=== PATIENT | male | born 1955 | race Caucasian/White ===

== ENCOUNTER 2020-12-30 02:36 | Emergency (ER) | payer MEDICAID ==
[~2020-12-30] VITALS: Ht 185.4 cm; Wt 63.5 kg
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
--- NOTE | 2020-12-30 03:09 | NUR ---
BLOOD COLLECTED AND SENT TO LAB
--- NOTE | 2020-12-30 03:14 | NUR ---
NAYLAID SWABBED, SENT TO LAB.
[2020-12-30 03:22] LABS: BASOPHILS # (AUTO) 0.1 /CMM (0.0-0.2); BASOPHILS % (AUTO) 1.2 % (0.0-2.0); EOSINOPHILS % (AUTO) 1.2 % (0.0-6.0); HEMATOCRIT 39 % (39-51); HEMOGLOBIN 12.7 g/dL (13.5-17.5); LYMPHOCYTES # (AUTO) 0.9 /CMM (0.8-4.8); LYMPHOCYTES % (AUTO) 11.7 % (20.0-44.0); MEAN CORPUSCULAR HGB CONC 33 g/dl (31.0-36.0); MEAN CORPUSCULAR VOLUME 93 fL (80-96); MONOCYTES # (AUTO) 0.4 /CMM (0.1-1.30); MONOCYTES % (AUTO) 5.1 % (2.0-12.0); NEUTROPHILS # (AUTO) 6.4 /CMM (1.8-8.9); NEUTROPHILS % (AUTO) 80.8 % (43.0-81.0); PLATELET COUNT (AUTO) 238 /CMM (150-450); WHITE BLOOD COUNT (AUTO) 7.9 K/uL (4.3-11.0)
[2020-12-30 03:27] LABS: CALCIUM, SERUM 9.3 mg/dL (8.5-10.1); CARBON DIOXIDE 24 mmol/L (21-32); CHLORIDE 101 mmol/L (98-107); CREATININE 0.8 mg/dL (0.6-1.3); GLUCOSE 111 mg/dL (74-106); POTASSIUM 4.2 mmol/L (3.5-5.1); SODIUM SERUM 136 mmol/L (136-145); UREA NITROGEN, BLOOD 17 mg/dL (7-18)
[2020-12-30 03:34] LABS: ACETAMINOPHEN 1 ug/ml (10-30); ALANINE AMINOTRANSFERASE 26 U/L (12-78); ALBUMIN 3.6 g/dL (3.4-5.0); ALKALINE PHOSPHATASE 152 U/L (46-116); ASPARTATE AMINOTRANSFERASE 18 U/L (15-37); BILIRUBIN,DIRECT 0.1 mg/dL (0.0-0.2); BILIRUBIN,TOTAL 0.3 mg/dL (0.2-1.0); TOTAL PROTEIN, SERUM 7.4 g/dL (6.4-8.2)
[2020-12-30 03:36] LABS: ALCOHOL, BLOOD < 3 mg/dL (0-0)
--- NOTE | 2020-12-30 04:10 | NUR ---
REC'D NEG COVID RESULTS. AWARE
--- NOTE | 2020-12-30 04:30 | NUR ---
URINE COLLECTED AND SENT TO LAB
[2020-12-30 05:01] LABS: BILIRUBIN,URINE NEGATIVE (NEGATIVE); COLOR,URINE YELLOW (YELLOW); LEUKOCYTE ESTERASE ,URINE NEGATIVE (NEGATIVE); NITRITE, URINE NEGATIVE (NEGATIVE); PROTEIN,URINE NEGATIVE (NEGATIVE); UGLUCOSE NEGATIVE (NEGATIVE); UROBILINOGEN,URINE 0.2 EU/dL (0.2)
--- NOTE | 2020-12-30 05:50 | NUR ---
ART, PROFESSOR SCULPTURE AT BEDSIDE FOR EVALUATION
[2020-12-30] MEDS ORDERED: OLANZAPINE 5 MG TABLET PO ONE (06:00)
[2020-12-30] MEDS ORDERED: OLANZAPINE 5 MG TABLET ONE (06:01)
--- NOTE | 2020-12-30 06:25 | NUR ---
CALLED [facility] FOR TRANSPORTATION. REFERENCE #[id number], WILL CALL BACK WITH ETA
--- NOTE | 2020-12-30 06:45 | NUR ---
[facility] B[facility] [address] [facility]
--- NOTE | 2020-12-30 09:56 | NUR ---
SPOKE WITH CHEN, ALL SOURCE INTELLIGENCE ANALYST AT THE [facility] TO NITOFY THAT PT IS CLEARED PSYCHIATRICALLY AND RETURNING TO FACILITY.
--- NOTE | 2020-12-30 10:20 | NUR ---
PT NOTED WITH AN IV LINE WHICH WAS STARTED AT THE FACILITY ON THE RFA 24G. IV LINE WAS DC D/T IV IS NOT WORKING.
--- NOTE | 2020-12-30 10:21 | NUR ---
[facility]Y #[phone] AT BEDSIDE FOR PT TRANSPORT BACK TO HIS FACILITY. PT IS PSYCHIATRICALLY CLEARED. FACILITY AWARE OF PT RETURN. REPORT GIVEN TO YOSEF CH. PT IS IN STABLE CONDITION FOR TRANSPORT
[2020-12-30 10:28] VITALS: BP 124/83
== END 2020-12-30 10:28 ==
LOC: ER 02:56
DX: F91.8 Other conduct disorders (principal); Z86.16 Personal history of COVID-19; C18.9 Malignant neoplasm of colon, unspecified; F20.9 Schizophrenia, unspecified; F32.9 Major depressive disorder, single episode, unspecified; K21.9 Gastro-esophageal reflux disease without esophagitis; Z88.8 Allergy status to other drugs, medicaments and biological substances; Z20.822 Contact with and (suspected) exposure to COVID-19
CPT/HCPCS: 36415; 80048; 80076; 80299; 80307; 80320; 81003; 85025; 87426; 99283; C9803; G0480